=== PATIENT | female | born 1980 | race Caucasian/White ===

== ENCOUNTER 2023-12-09 20:00 | Emergency (ER) | payer MEDICAID, OTHER ==
[~2023-12-09] VITALS: Ht 157.5 cm; Wt 69.1 kg
[~2023-12-09 20:00] MED LIST: ACET-2744 PO; LEVO25TA4 PO
[2023-12-09 20:07] VITALS: TEMP 98.4
[2023-12-09 20:41] LABS: BASOPHILS % (AUTO) 0.9 % (0.0-2.0); EOSINOPHILS % (AUTO) 0.8 % (1.0-6.0); HEMATOCRIT 41.4 % (36-46); HEMOGLOBIN 14.6 g/dL (12.0-16.0); LYMPHOCYTES # (AUTO) 3.4 K/uL (1.0-4.8); MEAN CORPUSCULAR HEMOGLOBIN 29.9 pg (26.0-34.0); MEAN CORPUSCULAR HGB CONC 35.3 G/dL (31.0-37.0); MEAN CORPUSCULAR VOLUME 85 fL (80-100); MONOCYTES # (AUTO) 0.5 K/uL (0.1-1.0); MONOCYTES % (AUTO) 5.2 % (2.0-9.0); NEUTROPHILS # (AUTO) 5.7 K/uL (1.8-7.7); NEUTROPHILS % (AUTO) 58.1 % (40.0-70.0); PLATELET COUNT (AUTO) 314 K/uL (150-450); RED BLOOD CELL COUNT(AUTO) 4.89 MIL/uL (4.00-5.20); RED CELL DISTRIBUTION WIDTH 13.2 % (11.5-14.5); WHITE BLOOD COUNT (AUTO) 9.8 K/uL (4.5-11.0)
[2023-12-09 20:44] LABS: ANION GAP 11 mmol/L (8-16); CARBON DIOXIDE 28 mmol/L (22-29); CHLORIDE 94 mmol/L (98-107); GLOMERULAR FILTR. RATE CALC > 60 mL/min (>60); GLUCOSE,RANDOM 392 mg/dL (70-110); SODIUM SERUM 133 mmol/L (136-145); UREA NITROGEN, BLOOD 15 mg/dL (7-18)
[2023-12-09 20:53] LABS: TROPONIN I-HIGH SENSITIVITY 16 ng/L (<51)
[2023-12-09 21:37] LABS: ALBUMIN 4.1 g/dL (3.4-5.0); ALKALINE PHOSPHATASE 129 U/L (46-116); ASPARTATE AMINOTRANSFERASE 11 U/L (15-37); BILIRUBIN,TOTAL 0.8 mg/dL (0.1-1.0); LIPASE 29 U/L (16-77); TOTAL PROTEIN, SERUM 8.7 g/dL (6.4-8.2)
[2023-12-09 21:57] LABS: ALANINE AMINOTRANSFERASE 34 U/L (12-78)
[2023-12-09] MEDS: SODIUM CHLORIDE 0.9% 2,000 ML IV ONE (22:36)
[2023-12-09] MEDS: KETOROLAC TROMETHAMINE 30 MG/ML VIAL IVP ONE (22:37)
[2023-12-09] MEDS: INSULIN REGULAR, HUMAN 100 UNITS/ML IVP ONE (22:41)
[2023-12-09] MEDS ORDERED: METF-1211 PO (23:47)
[2023-12-09] MEDS ORDERED: IBUP-1554 PO (23:47)
[2023-12-10 00:35] VITALS: BP 138/76; PULSE 75; RESP 24
[2023-12-10 14:41] LABS: GLUCOMETER DEV NAME(LOC) ERT.5; GLUCOSE,POINT OF CARE 207 MG/DL (70-110)
[2023-12-10 14:41] LABS: GLUCOMETER DEV NAME(LOC) ERT.5; GLUCOSE,POINT OF CARE 354 MG/DL (70-110)
== END 2023-12-10 01:17 | disposition home or self-care (01) ==
LOC: EMS 20:00
DX: E11.65 Type 2 diabetes mellitus with hyperglycemia (principal); R25.2 Cramp and spasm; R07.89 Other chest pain; E03.9 Hypothyroidism, unspecified
CPT/HCPCS: 99285; 96374; 71045; 96361; 96375; 80048; 80076; 82962; 83690; 84484; 84703; 85025; 36415; 93005; J1815; J1885; J7030